=== PATIENT | female | born 1990 | race Caucasian/White ===

== ENCOUNTER 2019-04-02 11:04 | Outpatient (CLI) | payer OTHER ==
[~2019-04-02 11:04] MED LIST: SYNTHROID50 MCG
== END 2019-04-02 11:18 | disposition home or self-care (01) ==
LOC: SONOGRAMA 11:04
DX: N83.291 Other ovarian cyst, right side (principal); N64.51 Induration of breast

== ENCOUNTER 2019-07-11 13:10 | Outpatient (CLI) | payer OTHER | END 2019-07-11 13:45 | disposition home or self-care (01) | LOC: SONOGRAMA 13:10 → MAMO-SONO 13:15 → SONOGRAMA 13:45 | DX: N83.292 Other ovarian cyst, left side (principal) ==

== ENCOUNTER 2020-03-20 10:18 | Outpatient (CLI) | payer OTHER | END 2020-03-20 10:59 | disposition home or self-care (01) | LOC: NST 10:18 | PROVIDERS: ATTEND Obstetrics & Gynecology Maternal & Fetal Medicine | DX: O36.8190 Decreased fetal movements, unspecified trimester, not applicable or unspecified (principal) ==

== ENCOUNTER 2020-06-05 16:05 | Inpatient (IN) | payer OTHER ==
[~2020-06-05] VITALS: Ht 154.9 cm; Wt 3.2 kg
[2020-07-04] MEDS ORDERED: PRENATAL TABLE1 EAC3 PO (06:57)
[2020-07-04] MEDS ORDERED: SYNTHROID88 MCG PO (06:58)
[2020-07-04] MEDS ORDERED: [UNRECOGNIZED DRUG - OTHER] PO (06:58)
== END 2020-07-07 11:20 | DRG 788 ==
LOC: OB/GYN 07-01 16:03 → LDR 07-04 05:55 → OB/GYN 07-04 19:09
PROVIDERS: ADMIT Obstetrics & Gynecology; ATTEND Obstetrics & Gynecology
PROC: 4A1HXCZ Monitoring of Products of Conception, Cardiac Rate, External Approach (ICD-10-PCS; 2020-07-04)
PROC: 3E033VJ Introduction of Other Hormone into Peripheral Vein, Percutaneous Approach (ICD-10-PCS; 2020-07-04)
PROC: 10D00Z1 Extraction of Products of Conception, Low, Open Approach (ICD-10-PCS; principal; 2020-07-04 15:00)
DX: O61.0 Failed medical induction of labor (principal); Z3A.40 40 weeks gestation of pregnancy; Z37.0 Single live birth; Z20.828 Contact with and (suspected) exposure to other viral communicable diseases

== ENCOUNTER 2020-06-24 12:39 | Outpatient (CLI) | payer OTHER | END 2020-06-24 13:18 | disposition home or self-care (01) | LOC: NST 12:39 | PROVIDERS: ATTEND Obstetrics & Gynecology | DX: Z34.83 Encounter for supervision of other normal pregnancy, third trimester (principal) ==

== ENCOUNTER 2020-06-27 14:45 | Outpatient (CLI) | payer OTHER | END 2020-06-27 16:09 | disposition home or self-care (01) | LOC: NST 14:45 | PROVIDERS: ATTEND Obstetrics & Gynecology | DX: Z34.83 Encounter for supervision of other normal pregnancy, third trimester (principal) ==